=== PATIENT | female | born 1935 | race Hispanic/Latino ===

== ENCOUNTER 2017-06-05 15:01 | Inpatient (IN) | payer MEDICARE, OTHER ==
[2017-06-05] MEDS ORDERED: Albuterol Sulfate 1.25 MG/3 ML NEB ONE (15:33)
[2017-06-05 15:39] LABS: Oxyhemoglobin 93.2 % (94.0-97.0); Sodium 145 mmol/L (135-148)
[2017-06-05 15:42] LABS: Modified Allen's Test POSITIVE; Vent NO
--- NOTE | 2017-06-05 15:56 | RAD ---
PORTABLE CHEST 1 VIEW: DATE: 06/05/17. TIME: 2:50 p.m. HISTORY: Altered mental status, unresponsive. FINDINGS: Comparison is made with the exam of 11/03/16. The heart size is normal. The aorta is tortuous. There is evidence of old granulomatous disease. N o lobar consolidation, pneumothoraces, robert pulmonary edema, or large effusions are seen. POS: [facility]
--- NOTE | 2017-06-05 16:13 | RAD ---
PORTABLE CHEST ONE VIEW: Date: 06-05-17 Time: 3:23 p.m. History: Central line placement. FINDINGS: There has been interval placement of a left subclavian central line with the tip in the direction of the SVC since earlier exam of 2:50 p.m. on the same date. No pneumothorax is seen. POS: [facility]
[2017-06-05 16:20] LABS: Bilirubin Negative (Negative); Blood, Urine Small (Negative); Glucose, Urine (Dipstick) 250 mg/dL (Negative); Ketone, Urine 40 mg/dL (Negative); Nitrite Negative (Negative); Protein, Urine (Dipstick) > or equal to 300 mg/dL (Neg-Trace); Urobilinogen 0.2 mg/dL (0.2-1.0)
[2017-06-05 16:21] LABS: Bacteria/HPF Rare-Few HPF (None Seen); RBC/HPF 0-3 HPF (0-3); Squamous Epithelial 0-3 HPF (0-3)
[2017-06-05] MEDS ORDERED: Furosemide 40 MG/4 ML VIAL ONE (16:28)
[2017-06-05 16:29] LABS: Hyaline Casts/LPF 0-3 HYALINE CAST LPF (0-3 Hyaline)
[2017-06-05 16:30] LABS: Lactic Acid - Sepsis 2.2 mmol/L (0.5-2.2)
[2017-06-05 16:33] LABS: Amphetamine Not Detected (NotDetected); Methadone Not Detected (NotDetected); Methamphetamine Not Detected (NotDetected)
[2017-06-05 16:33] LABS: Acetaminophen Less than 6.0 mcg/mL (10.0-30.0); Salicylate Less than 8.0 mg/dL (15.0-30.0)
[2017-06-05 16:34] LABS: ALT (SGPT) Less than 7 U/L (8-55); AST (SGOT) 16 U/L (5-34); Alkaline Phosphatase 68 U/L (40-150); Anion Gap 19 mmol/L (10-20); BUN (Urea Nitrogen) 76 mg/dL (9.8-20.1); Bilirubin, Total 0.5 mg/dL (0.2-1.2); CK (CPK) 93 U/L (29-168); Calc. Creatinine Clearance 0 mL/min (70-130); Calcium 8.3 mg/dL (7.8-10.44); Carbon Dioxide 13 mmol/L (23-31); Chloride 114 mmol/L (98-107); Estimated GFR-MDRD 5; Globulin 3.3 g/dL (2.4-3.5); Lipase 27 U/L (8-78); Protein, Total 6.6 g/dL (6.0-8.3)
[2017-06-05 16:35] LABS: Hematocrit 40.1 % (36.0-47.0); Mean Platelet Volume 7.3 fL (7.4-10.4); Red Blood Cell (RBC) Count 4.06 mill/uL (4.20-5.40)
[2017-06-05 16:45] LABS: Troponin I 0.501 ng/mL (< 0.028)
[2017-06-05] MEDS ORDERED: Piperacillin/Tazobactam 4.5 GM in Sodium Chloride 0.9% 100 ML IVPB SCH (16:45)
[2017-06-05 16:50] LABS: Anisocytosis SLIGHT = 6-15 cells (100X) (0-5/hpf); Band 16 % (5-11); Neutrophil 69 % (42-75); Polychromasia SLIGHT = 2-3 cells (100X) (0-2/hpf); Reactive Lymphocytes 2 % (0-10); Schistocytes SLIGHT = 2-5 cells (100X) (0-1/hpf)
[2017-06-05] MEDS ORDERED: Vecuronium 10 MG VIAL ONE (17:01)
[2017-06-05 17:29] LABS: Oxyhemoglobin 96.7 % (94.0-97.0); Sodium 143 mmol/L (135-148)
--- NOTE | 2017-06-05 17:40 | RAD ---
CHEST 1 VIEW: Date: 06/05/17 Time: 1523 hours HISTORY: Unresponsive patient. AMS FINDINGS: Interval placement of endotracheal and nasogastric tube. Stable left-sided central venous catheter. S light worsening opacification of left lung base due to interstitial and alveolar opacification. Minim al interstitial opacification in the right lung base. No pneumothorax. IMPRESSION: 1. Bibasilar, left greater than right, interstitial and alveolar opacities. 2. Lines and tubes as above. POS: [facility]
[2017-06-05 17:49] LABS: Mechanical Tidal Volume 400 ml; Modified Allen's Test POSITIVE; Vent YES
[2017-06-05 17:50] LABS: Mode SIMV
--- NOTE | 2017-06-05 17:55 | CT ---
NONCONTRAST HEAD CT: Date: 06/05/17 HISTORY: Altered mental status. COMPARISON: None. TECHNIQUE: Noncontrast head CT is performed from skull base to skull vertex. FINDINGS: There is loss of amaya-white matter differentiation involving the left cerebrum, compatible with a MCA distribution infarction. Subtle linear hyperdensity along the left temporal and frontal cortex may r epresent small amounts of hemorrhage. There is mass effect and partial effacement of the left ventric ular system. There is also component of loss of cortical amaya-white matter differentiation in the med ial aspect of the left frontal lobe, as well as the left occipital lobe suggesting LUCILLE and [employer] distri bution insult. There is hnfo-tt-sjlea subfalcine herniation of approximately 3 mm. Basilar cisterns a nd ambient cisterns continue to be patent. There are patchy white matter hypodensities which may represent chronic small vessel ischemic change. Calvarium is intact. Adequate aeration of the sinuses and mastoid air cells. Cavernous carotid athero sclerosis is noted. IMPRESSION: 1. Multifocal and multiterritory left cerebral infarction is suspected. Linear hyperdensities may re present small components of hemorrhage. 2. Dawf-gl-idunb subfalcine herniation. 3. Mass effect and partial effacement of left ventricular system. Results of study discussed with Dr. Proctor on 06/05/17 at 1748 hours. CODE CR. POS: [facility]
[2017-06-05] MEDS ORDERED: Aspirin 300 MG Suppository ONE (18:34)
[2017-06-05 18:36] LABS: Prothrombin Time 16.6 SEC (12.0-14.7)
[2017-06-05 18:37] LABS: PTT 35.9 SEC (22.9-36.1)
[2017-06-05] MEDS ORDERED: manNITOL 20% 250 ML IVPB SCH (19:30)
[2017-06-05] MEDS ORDERED: Dextrose 50% Abboject 50 ML SYRINGE SLOW IVP PRN (21:16)
[2017-06-05] MEDS ORDERED: Dextrose 5% in Water 1,000 ML IV PRN (21:16)
[2017-06-05] MEDS ORDERED: Ondansetron HCl/PF 4 MG/2 ML Vial IVP PRN ×2 (21:17→21:27)
[2017-06-05] MEDS ORDERED: Sodium Chloride 0.9% 1,000 ML IV SCH (21:17)
[2017-06-05] MEDS ORDERED: Ondansetron ODT 4 MG TAB SL PRN (21:17)
[2017-06-05] MEDS ORDERED: Eucerin (Mineral Oil/Petrolatum,White) 30 gm Jar TOP PRN (21:22)
[2017-06-05] MEDS ORDERED: RENALLY ADJUST ANTIBIOTICS IVPB PRN (21:26)
[2017-06-05] MEDS ORDERED: Bisacodyl 10 MG SUPP PR PRN (21:26)
[2017-06-05] MEDS ORDERED: Ondansetron ODT 4 MG TAB PO PRN (21:27)
--- NOTE | 2017-06-05 22:02 | HP ---
DATE OF ADMISSION: 06/05/2017 PRIMARY CARE PHYSICIAN: Lu Thomas M.D. PRIMARY SENIOR ACCOUNT DIRECTOR: Dr. Rascon. CHIEF COMPLAINT: Unresponsiveness. HISTORY OF PRESENT ILLNESS: The patient is an 81-year-old female with hypertension, diabetes mellitus type 2, CKD stage 5, was brought into the emergency room with unresponsiveness. History obtained from the son at the bedside. Patient was found unresponsive at home. She was last seen normal 2 days ago. She was lying in her bed and was not answering the door for which EMS was called. Details unavailable at this time. She received DuoNebs and was placed on noninvasive positive pressure ventilation. Her initial vital signs in the emergency room showed temperature of 98.4, respiration of 28, pulse rate of 102 , blood pressure of 172/65. She was intubated and placed on mechanical ventilation. Initial CT scan showed left middle cerebral artery distribution cerebrovascular accident with small component of hemorrhage along with left to right subfalcine herniation and mass effect on the left ventricular system. Her initial labs showed WBC of 21,000 with 16% bandemia. ABG showed pH of 7.35 with pCO2 of 21.9, bicarbonate of 12 with pO2 of 77.5. Repeat ABG showed pH of 7.24 with pCO2 of 32.3 and bicarbonate of 14. BNP was 2761. Prolactin level was 54. Urinalysis showed greater than 50 wbc's with the rare bacteria. Influenza testing was negative. Her chest x-ray was negative for infiltrate. A central line was placed in the emergency room. PAST MEDICAL HISTORY: 1. Hypertension 2. Hyperlipidemia. 3. Chronic kidney disease stage 5. 4. Secondary hyperparathyroidism. 5. Chronic anemia. 6. Glaucoma. PAST SURGICAL HISTORY: 1. Right kidney stent. 2. History of breast biopsy. 3. Right lower extremity stent, details unavailable. ALLERGIES: Patient is allergic to NORCO, DEMEROL, and MORPHINE. SOCIAL HISTORY: Patient is a former smoker. No alcohol or drug use. FAMILY HISTORY: Negative for diabetes, hypertension, or heart disease. REVIEW OF SYSTEMS: Cannot be reliably obtained from the patient due to current cognitive status. PHYSICAL EXAMINATION: VITAL SIGNS: As discussed above. GENERAL: An 81-year-old female, intubated on mechanical ventilation. HEENT: Head atraumatic, normocephalic, sclerae anicteric. Pupils were 3 to 4 mm bilaterally with no/minimal response to light. NECK: Supple, no JVD, no neck stiffness, no carotid bruit. LUNGS: Showed diminished air entry bilaterally with coarse breath sounds. No wheezing or rhonchi. HEART: S1, S2 present. Regular rate and rhythm, 2/6 systolic murmur over the mitral area. ABDOMEN: Soft, nontender, bowel sounds present. EXTREMITIES: No edema or calf tenderness. NEUROLOGIC/PSYCHIATRIC: Could not be done due to current cognitive status. SKIN: Warm and dry. LYMPH NODES: No palpable lymph nodes in the neck. PERIPHERAL VASCULAR: Radial pulses palpable bilaterally. MUSCULOSKELETAL: No joint swelling or tenderness. LABORATORY FINDINGS: As discussed above. EKG by my review showed sinus rhythm with nonspecific ST-T wave changes mainly in the lateral leads. Chest x-ray and CT scan of the brain by my review as discussed above. IMPRESSION: 1. 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 No antiplatelet due to hemorrhagic coversion. 2. Acute hypoxic respiratory failure. 3. Acute kidney injury on chronic kidney disease stage 5. 4. Metabolic acidosis, probably secondary to renal insufficiency. 5. Suspected seizure secondary to acute cerebrovascular accident. Patient has elevated prolactin level. 6. Sepsis with acute organ dysfunction secondary to urinary tract infection. 7. Diabetes mellitus type 2. 8. Hypertension. 9. Chronic anemia. 10. Glaucoma. 11. Dyslipidemia. PLAN: The patient will be monitored in the Intensive Care Unit. Critical Care , Neurosurgery has been notified. We will consult Nephrology, Dr. Rascon. We will start her on bicarbonate drip. Continue mannitol. Insulin sliding scale. Supportive care. Stroke team. Consult palliative care. Repeat labs in the a.m. Low dose Keppra for seizure precautions. Consult Neurology. Empiric antibiotics. Plan of care was discussed with the son. He stated understanding. CODE STATUS: FULL CODE. Surrogate decision maker is son at the bedside. GREGORIO
[2017-06-05] MEDS: Sodium Bicarbonate 150 MEQ in Dextrose 5% in Water 1,000 ML IV SCH ×2 (22:33)
[2017-06-05] MEDS: hydrALAZINE 20 MG/ML VIAL SLOW IVP PRN (23:05)
[2017-06-06] MEDS: Insulin Regular 300 UNITS/3 ML VIAL SC PRN ×3 (00:01→09:31)
[2017-06-06] MEDS ORDERED: Labetalol HCl 100 MG/20 ML VIAL SLOW IVP PRN (01:12)
[2017-06-06] MEDS ORDERED: Piperacillin/Tazobactam 2.25 GM in Sodium Chloride 0.9% 100 ML IVPB SCH (02:00)
[2017-06-06] MEDS: Labetalol HCl 100 MG/20 ML VIAL SLOW IVP PRN ×7 (02:36→20:13)
[2017-06-06] MEDS: Piperacillin/Tazobactam 2.25 GM in Sodium Chloride 0.9% 100 ML IVPB SCH ×2 (05:18→18:51)
--- NOTE | 2017-06-06 05:45 | CON ---
DATE OF CONSULTATION: 06/05/2017 HISTORY OF PRESENT ILLNESS: Ms. Ellsworth is an 81-year-old woman who presented to the emergency departm ent at [facility] via EMS. Last time, the patient was seen normal, was on Monday or y according to family members. Patient was found by home-health provider to be unresponsive to the d oor. EMS arrived at request of the home health service and then patient was found in her bed, not an swering to commands. She had what seemed to be poor breath sounds in all lobes of the lungs and was blinking on command, but otherwise was not moving according to EMS at bedside today. In the emergenc y department, the patient is intubated. She had received paralytics for rapid sequence intubation in the ER, but this was roughly 2-1/2 hours ago and thus all of her paralytics worn off and she has not received any sedation after the fact. She still has been minimally responsive if any upon my observ ation. CT scan was performed in the emergency department shows large multifocal left-sided infarcts most significant, which is in left middle cerebral artery distribution, ischemic area as well as some smaller areas in the anterior and posterior cerebral artery distributions. There is also a question able hemorrhage involving the temporal and parietal lobes in the healthier tissue that distal perfuse d, but I am not completely convinced that this is in fact hemorrhage. The patient did not report to be on any blood thinning medications and coagulation studies are normal from my standpoint. Patient' s prognosis is extraordinarily poor. PHYSICAL EXAMINATION: Patient's pupils are equally round and reactive to light. Her extraocular mov ements are unable to be assessed, as she is not moving them at all. She does not blink. At this rika e, she has no corneal reflex. She does not have a gag reflex. She is on the ventilator and is not o verbreathing yet. She no pain response in any significant way. ASSESSMENT: Left multifocal cerebral infarcts. PLAN: At this time, due to the patient's significant medical history including diabetes, kidney dise ase as well as pneumonia given her chest scans. I cannot recommend surgery given the high risk and l ow benefit. I discussed with the family at length that my best recommendation will be medical interv ention to this, which would be mannitol 50 grams x1 through her IV and will assess over the course of the next 12-24 hours if there is any clinical improvement. I had a robert discussion with the family members about the significantly poor prognosis, given the amount of infarct in her comorbidities, an d they are understanding of this and again we will continue to monitor while in the ICU. Lamberto Mccoy PA-C dictating for Dr. Gomez.
[2017-06-06 06:16] LABS: Band 29 % (5-11); Hematocrit 34.8 % (36.0-47.0); Mean Platelet Volume 7.3 fL (7.4-10.4); Neutrophil 66 % (42-75); Red Blood Cell (RBC) Count 3.53 mill/uL (4.20-5.40); White Blood Cell (WBC) Count 13.2 thou/uL (4.8-10.8)
[2017-06-06 06:20] LABS: ALT (SGPT) Less than 7 U/L (8-55); AST (SGOT) 11 U/L (5-34); Alkaline Phosphatase 50 U/L (40-150); Anion Gap 18 mmol/L (10-20); BUN (Urea Nitrogen) 83 mg/dL (9.8-20.1); Bilirubin, Total 0.5 mg/dL (0.2-1.2); Calc. Creatinine Clearance 5 mL/min (70-130); Calcium 7.5 mg/dL (7.8-10.44); Carbon Dioxide 18 mmol/L (23-31); Chloride 105 mmol/L (98-107); Cholesterol 85 mg/dl (< 200 Desired); Estimated GFR-MDRD 5; Globulin 2.9 g/dL (2.4-3.5); LDL Cholesterol, Calculated 35 mg/dL; Protein, Total 5.6 g/dL (6.0-8.3)
[2017-06-06 07:11] LABS: Oxyhemoglobin 96.6 % (94.0-97.0); Sodium 136 mmol/L (135-148)
[2017-06-06 07:44] LABS: Mechanical Tidal Volume 500 ml; Mode SIMV.PSV; Modified Allen's Test POSITIVE; Pressure Support 10 cmH2O; Vent YES
--- NOTE | 2017-06-06 08:01 | RAD ---
FRONTAL SEMIUPRIGHT CHEST RADIOGRAPH: Date: 06/06/17 COMPARISON: 06/05/17. HISTORY: CCU ventilated patient. FINDINGS: Endotracheal tube, nasogastric tube, and left-sided vascular catheter present. Recommend advancing th e nasogastric tube as the side port is proximal to the gastroesophageal junction. There is perihilar and bibasilar interstitial prominence with air space disease noted in both lung ba ses, left greater than right. Aeration has worsened in both lung bases, left greater than right. Pulmonary vascular congestion is noted, new. IMPRESSION: Worsening opacity in bilateral perihilar regions and both lung bases, left greater than right. Findin gs may be on the basis of pulmonary edema, infectious pneumonitis, and/or aspiration. Follow-up to re solution advised. POS: [facility]
[2017-06-06] MEDS ORDERED: FLU VACC TS2017-18 (>65YR) 0.5 ML SYRINGE IM ONE (09:00)
[2017-06-06] MEDS ORDERED: Vancomycin HCl 1 GM in Premix Bag 1 BAG IVPB SCH ×2 (09:00→09:45)
[2017-06-06] MEDS: Famotidine/PF 20 mg/2ml Vial SLOW IVP SCH (09:34)
[2017-06-06] MEDS ORDERED: Vancomycin HCl 1.25 GM in Sodium Chloride 0.9% 250 ML 250 ML IVPB SCH (09:45)
[2017-06-06] MEDS ORDERED: Vancomycin HCl 750 MG in Sodium Chloride 0.9% 250 ML 250 ML IVPB SCH (09:45)
[2017-06-06] MEDS ORDERED: Vancomycin HCl 500 MG in Sodium Chloride 0.9% 100 ML IVPB SCH (09:45)
[2017-06-06] MEDS ORDERED: HOLD VANCOMYCIN FOR LEVEL >20 FS SCH (09:45)
--- NOTE | 2017-06-06 10:25 | CON ---
DATE OF CONSULTATON: 06/06/2017 HISTORY OF PRESENT ILLNESS: Ms. Ellsworth is an 81-year-old white female who was admitted for [facility]. She was noted to be in acute respiratory failure. She also was intubated and placed on vent ilator support. We are now being consulted for her chronic renal failure. This patient was recently seen at the [facility]al [facility] about a month ago. At that time, I have recommended dialysis with her. Ho wever, she continues to decline the dialysis. In addition, an initial CT scan showed a left middle c erebral artery cerebrovascular accident with a small component of hemorrhage. REVIEW OF SYSTEMS: Not obtainable since the patient is intubated and sedated. PAST MEDICAL HISTORY: Includes the followin. Chronic renal failure secondary to presumed hypertensive/diabetic nephropathy. 2. Type 2 diabetes mellitus. 3. Peripheral vascular disease. 4. Hyperlipidemia. 5. Gout. 6. History of renovascular disease. PAST SURGICAL HISTORY: Recently status post intubation, status post right renal artery stent placeme nt, status post left leg arteriogram, status post angioplasty of the right peripheral vessel, status post left breast biopsy. SOCIAL HISTORY: The patient lives alone and lives in [place]. Retired nurse. Smoked for 40 year s, half a pack a day. Alcohol none. No IV drug abuse. No blood transfusion. Education, nursing in school. Patient is . One child - . Sedentary lifestyle. ALLERGIES: VICODIN, DEMEROL. TRAUMA: Status post ankle sprain. IMMUNIZATIONS: Up to date. HOSPITALIZATIONS: See past medical history. FAMILY HISTORY: No family history of ESRD. PHYSICAL EXAMINATION: VITAL SIGNS: Blood pressure is 150/46, heart rate 73, respiratory rate 12, O2 sat 100%. GENERAL: The patient is intubated on ventilator support, minimally arousable. SKIN: Adequate turgor. HEENT: Pinkish conjunctivae, anicteric sclerae. NECK: No neck mass, no carotid bruits, no JVD. CHEST: No deformities. LUNGS: Decreased breath sounds. HEART: Normal sinus rhythm. No murmur, no gallops, no rubs. ABDOMEN: Globular, soft, nontender, no masses. EXTREMITIES: No edema. NEUROLOGIC: Sedated and intubated. MEDICATIONS: Of 06/06/2017, DuoNeb q.4 hours p.r.n., Lipitor 10 mg tab at bedtime, hydralazine 10 mg IV q.4 hours p.r.n., Humulin R sliding scale, Levetiracetam 250 mg q.12 hours, Zofran 4 mg q.6 hours p.r.n., Zosyn 2.25 grams IV q.12 hours, sodium bicarbonate drip, status post vancomycin. LABORATORY DATA: Of 06/06/2017, white count 13.2, hemoglobin 11.1, hematocrit 34.8. Sodium 137, pot assium 4, chloride 105, carbon dioxide 18, BUN 83, creatinine 7.57, glucose 159, calcium 7.5, AST 11, ALT 7. IMAGING: CT scan of the head on 06/05/2017 showed multifocal and multi territory left cerebral infar ction and suspect that there is a left to right subfalcine herniation. There is some mass effect and partial effacement of the left ventricular system. ASSESSMENT AND PLAN: 1. Status post cerebrovascular accident. Continue supportive care. Neurosurgery consult. 2. Chronic renal failure - this patient has worsening renal dysfunction. My bias is to initiate hem odialysis with this patient without any heparin use. We will consult surgery for temporary femoral l ine placement. Please note, the etiology of the chronic renal failure is also from renovascular dise ase/hypertensive nephropathy, although diabetic nephropathy may also be playing a factor. 3. Sepsis? the patient has been given some empiric IV antibiotics in the past. Overall, prognosis remains guarded.
--- NOTE | 2017-06-06 10:46 | CON ---
DATE OF CONSULTATION: 06/06/2017 Sada Ellsworth is an 81-year-old female who is intubated on the vent. I am not able to get any informati on, but apparently ER note states that she came in unresponsive as per family members. CT of the hea d shows a large left MCA distribution infarct. X-ray shows a left-sided infiltrate. She has been here recently in the hospital. It appears she was apparently placed on CPAP in the ER. Somewhere down the line she was intubated. Extensive history is outlined. PAST MEDICAL HISTORY: Pertinent for diabetes, high cholesterol, hypertension and renal failure. PAST SURGICAL HISTORY: Multiple including she had renal stents, peripheral vascular stent. Breast b iopsy. MEDICATIONS FROM HOME: Melatonin, glimepiride 2 mg, ferrous sulfate, clonidine 0.3 twice a day, Core g 6.25 b.i.d., aspirin, amlodipine 5, allopurinol 100. ALLERGIES: Multiple, MORPHINE, DEMEROL, HYDROCODONE, TYLENOL. REVIEW OF SYSTEMS: Unobtainable, she is on the vent. PHYSICAL EXAMINATION: GENERAL: She opens her eyes, is able to move the right lower extremity. VITAL SIGNS: Pulse 75, O2 sat 100%, blood pressure 150/57. CHEST: Reveals bilateral rhonchi. CARDIAC: Normal S1, normal S2.. ABDOMEN: Soft. No masses. LABORATORY DATA: White count 13,000, H&H 11 and 34. Platelet count 289, pO2 102, pCO2 30, pH 7.50 o n 40%, rate of 14, creatinine is 7.5, BUN 83, albumin is 2.7. X-ray showed left-sided infiltrate. CT of the head is as noted shows a large area of infarct involvi ng the left cerebral area. IMPRESSION: 1. Left cerebrovascular accident, left-sided paralysis. 2. Renal failure. 3. Apparently smoker. 4. Left-sided pneumonia, probably aspiration. 5. Diabetes. PLAN: Minimize sedation. Await input from Neurology. I agree with empiric antibiotics, neb treatme nts, supportive care. I will follow. Forty-five minutes critical care time.
--- NOTE | 2017-06-06 10:52 | CT ---
NONCONTRAST CT BRAIN: Date: 06-06-17 Comparison: 06-05-17 Technique: Noncontrast enhanced CT images of the brain obtained. FINDINGS: There continues to be approximately 6 mm of left to right shift, slightly more pronounced than on the previous where it measured 3 mm midline shift. There continues to be extensive edema in the left fro ntal lobe and left parietal lobes compatible with acute stroke. No evidence of interval enlargement o f the stroke is seen. No definite evidence of hemorrhage is seen. Areas of heterogeneous density is s een in the left hemisphere. IMPRESSION: Heterogeneous pattern of density involving much of the left frontal hemisphere compatible with areas of subacute infarction as well as non-infarcted brain. Extensive hemispheric edema is also present. T here is an increase in the midline shift. POS: [facility]
[2017-06-06] MEDS: hydrALAZINE 20 MG/ML VIAL SLOW IVP PRN ×2 (11:41→16:03)
[2017-06-06 12:35] LABS: Vancomycin, Random 22.7 ug/mL (See Comment)
[2017-06-06] MEDS ORDERED: cloNIDine 0.1mg/24 Hour PATCH TD SCH (13:00)
[2017-06-06] MEDS: Sodium Bicarbonate 150 MEQ in Dextrose 5% in Water 1,000 ML IV SCH ×2 (15:17)
--- NOTE | 2017-06-06 20:11 | CON ---
DATE OF CONSULTATION: 06/06/2017 NEUROLOGY CONSULTATION CONSULTING PHYSICIAN: Hospitalist service. IMPRESSION: 1. Large left middle cerebral artery stroke with mild midline shift in the far frontal region and so me secondary petechial hemorrhage. 2. Normal ejection fraction. 3. End-stage renal disease. 4. Hypertension. 5. Diabetes. 6. Tobacco use. PLAN: 1. Aspirin 325 mg per gastrostomy tube. 2. Carotid ultrasound. 3. Begin dialysis, which may also help with reducing cerebral edema. 4. Attempt extubation when safe. 5. Swallow evaluation once extubated. HISTORY OF PRESENT ILLNESS: Ms. Ellsworth is an 81-year-old female who was living independently prior to being found unresponsive in her home. Family members had called several times before omari alena went over and checked on her. They found her on Monday with new onset of paralysis on the right a nd inability to speak. She was subsequently intubated and put in the intensive care unit. She had a followup CT done today, which showed mild degree of frontal midline shift. She has plenty of space around the brainstem. She has had echocardiogram done today with ejection fraction of around 70%. S he has not had any prior stroke symptoms. PAST MEDICAL HISTORY: As listed above. ALLERGIES: MORPHINE, HYDROCODONE, DEMEROL. SOCIAL HISTORY: Positive tobacco use. FAMILY HISTORY: Noncontributory. REVIEW OF SYSTEMS: Not obtainable. PHYSICAL EXAMINATION: VITAL SIGNS: Blood pressure 133/37, pulse 78, respirations 27, saturations 100%. HEENT: Pupils are equal and conjunctivae are clear. She has roving eye movements. She has spontane ous eye opening. She has been intubated. NEUROLOGIC: She appears to localize to voice and focuses on what is in front of her and she had dimi nished tone on the right side as compared to the left. She had some spontaneous movement on the left . No abnormal movements were seen. Plantar responses were upgoing on the right and downgoing on the left. CT images were reviewed. LABORATORY STUDIES: Reviewed. SUMMARY: An 81-year-old woman with a fairly massive stroke, which she has shown some mild cerebral e jay, but I think that she will survive this, discussed the potential outcomes with her family in reg tabitha to her aphasia and right hemiparesis. They want to continue with full efforts to try to stabiliz e her and moved towards rehabilitation.
[2017-06-06] MEDS: Atorvastatin Calcium 10 MG TAB PER TUBE SCH (20:20)
--- NOTE | 2017-06-06 23:30 | PDOC.PN ---
- Subjective Encounter Start Date: 06/06/17 Encounter Start Time: 12:30 -: non-verbal Patient seen and examined. Intubated on Vent. - Objective Resuscitation Status: Resuscitation Status DNR:Do Not Resuscitate MAR Reviewed: Yes Vital Signs & Weight: Vital Signs (12 hours) Temp Pulse Resp BP Pulse Ox 06/06/17 22:06 74 114/39 L 06/06/17 22:00 33 H 06/06/17 20:13 88 175/44 H 06/06/17 20:00 99.2 F 23 H 06/06/17 19:33 99.2 F 77 31 H 100 06/06/17 18:51 77 166/43 H 06/06/17 18:40 90 167/48 H 06/06/17 18:00 23 H 06/06/17 16:03 75 165/41 H 06/06/17 16:00 98.2 F 27 H 06/06/17 14:39 75 165/41 H 06/06/17 14:02 71 143/39 H 06/06/17 14:00 21 H 06/06/17 13:59 74 31 H 99 06/06/17 12:00 98.9 F 30 H 06/06/17 11:41 74 165/48 H Weight Admit Weight 108 lb 3.2 oz Weight 110 lb 6.4 oz Most Recent Monitor Data Heart Rate from ECG 71 NIBP 114/39 NIBP BP-Mean 60 Respiration from ECG 34 SpO2 100 I&O: 06/05/17 06/06/17 06/07/17 06:59 06:59 06:59 Intake Total 828 949 Output Total 312 540 Balance 516 409 Result Diagrams: 06/07/17 04:23 06/07/17 04:23 Additional Labs: Accuchecks 06/06/17 06/06/17 06/06/17 17:15 12:08 09:15 POC Glucose 135 H 153 H 183 H 06/06/17 06/05/17 04:26 23:49 POC Glucose 160 H 174 H EKG Reviewed by me: Yes (Tele SR) Phys Exam - Physical Examination Pt on mec Vent. Respiratory: wheezing present B/L rales, intubated. Symmetrical. Scat rhonchi Cardiovascular: RRR, no rub no heaves/pulsations Gastrointestinal: soft, positive bowel sounds Neuro/Psych - Not following commands. Cannot assess due to current mentatio Dx/Plan - Plan cont current plan of care, plan discussed w/ family, DVT proph w/SCDs IMPRESSION: 1. 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 No antiplatelet due to hemorrhagic coversion. 2. Acute hypoxic respiratory failure - on Mech Vent 3. Acute kidney injury on chronic kidney disease stage 5. 4. Metabolic acidosis, probably secondary to renal insufficiency. - on bicarb drip 5. Suspected seizure secondary to acute cerebrovascular accident. Patient has elevated prolactin level. 6. Sepsis with acute organ dysfunction secondary to urinary tract infection/ Aspiration pneumonia. 7. Diabetes mellitus type 2. on sliding scale 8. Hypertension. 9. Chronic anemia. 10. Glaucoma. 11. Dyslipidemia. PLAN: * NSG following * Not on antiplatelet due to hemorrhagic conversion * Cont to monitor * Critical care following * Await Neuro input * DNR * Add Vancomycin * Cont Zosyn * Not on Heparin/Lovenox due to hemorrhagic conversion Review of Systems - Review of Systems Other: Cannot obtain due to current mentation. - Medications/Allergies Allergies/Adverse Reactions: Allergies Allergy/AdvReac Type Severity Reaction Status Date / Time acetaminophen [From Vicodin] Allergy Verified 11/23/16 15:45 hydrocodone [From Vicodin] Allergy Verified 11/23/16 15:45 meperidine [From Demerol] Allergy Verified 11/23/16 15:45 morphine Allergy Verified 11/23/16 15:45 Medications: Current Medications Albuterol/Ipratropium (Duoneb) 3 ml NEB [id number] PRN PRN Reason: SOB &/or Wheezing Albuterol/Ipratropium (Duoneb) 3 ml NEB [id number] [facility] Last Admin: 06/06/17 18:40 Dose: 3 ml Aspirin (Aspirin) 325 mg PO DAILY [facility] Atorvastatin Calcium (Lipitor) 10 mg PER TUBE HS [facility] Last Admin: 06/06/17 20:20 Dose: 10 mg Bisacodyl (Dulcolax) 10 mg [place] DAILYPRN PRN PRN Reason: Constipation Clonidine (Gqeivowq-Uvu-0 Patch) 0.1 mg TD Q7DAYS@1300 [facility] Last Admin: 06/06/17 13:13 Dose: 0.1 mg Dextrose/Water (Dextrose 50%) 25 gm SLOW IVP PRN PRN PRN Reason: Hypoglycemia Famotidine (Pepcid) 20 mg SLOW IVP Q24HR [facility] Last Admin: 06/06/17 09:34 Dose: 20 mg Glucagon (Glucagon) 1 mg IM PRN PRN PRN Reason: Hypoglycemia Hydralazine HCl (Apresoline) 10 mg SLOW IVP Q4H PRN PRN Reason: BP > 160 Last Admin: 06/06/17 16:03 Dose: 10 mg Dextrose/Water (D5w) 1,000 mls @ 0 mls/hr IV .Q0M PRN; As Directed PRN Reason: Hypoglycemia Sodium Bicarbonate 150 meq/ (Dextrose/Water) 1,150 mls @ 75 mls/hr IV .[id number] [facility] Last Admin: 06/06/17 15:17 Dose: 1,150 mls Levetiracetam 250 mg/ Sodium (Chloride) 102.5 mls @ 205 mls/hr IVPB 1000,2200 [facility] Last Admin: 06/06/17 21:26 Dose: 102.5 mls Piperacillin Sod/Tazobactam (Sod 2.25 gm/ Sodium Chloride) 100 mls @ 200 mls/ hr IVPB 0600,1800 [facility] Last Admin: 06/06/17 18:51 Dose: 100 mls Vancomycin HCl 1.25 gm/ Sodium (Chloride) 250 mls @ 166.667 mls/hr IVPB [facility] Vancomycin HCl 1 gm/ Device 200 mls @ 200 [facility]ls/[facility] Vancomycin HCl 750 mg/ Sodium (Chloride) 250 mls @ 250 mls/hr IVPB [facility] Vancomycin HCl 500 mg/ Sodium (Chloride) 100 mls @ 100 mls/hr IVPB [facility] Insulin Human Regular (Humulin R) 0 units SC .MILD SLIDING SCALE PRN PRN Reason: Mild Correctional Scale Last Admin: 06/06/17 09:31 Dose: 2 unit Labetalol HCl (Normodyne) 20 mg SLOW IVP Q1H PRN PRN Reason: BP > 160 Last Admin: 06/06/17 20:13 Dose: 20 mg Labetalol HCl (Normodyne) 10 mg SLOW IVP Q6H PRN PRN Reason: SBP GREATER THAN 160 Last Admin: 06/06/17 01:22 Dose: 10 mg Mineral Oil/White Petrolatum (Eucerin Cream) 0 gm TOP BIDPRN PRN PRN Reason: Dry Skin Miscellaneous Medication (Pharmacy To Dose) 1 each IVPB PRN PRN PRN Reason: Pharmacy to dose Miscellaneous Medication (Pharmacy To Dose) 1 each IVPB PRN PRN PRN Reason: Pharmacy to dose Hold Vancomycin For (Level >20) 0 each FS .AT DIALYSIS [facility] Ondansetron HCl (Zofran Odt) 4 mg PO Q6H PRN PRN Reason: Nausea/Vomiting Ondansetron HCl (Zofran) 4 mg IVP Q6H PRN PRN Reason: Nausea/Vomiting Sodium Chloride (Flush - Normal Saline) 10 ml IVF Q12HR [facility] Last Admin: 06/06/17 20:20 Dose: 10 ml Sodium Chloride (Flush - Normal Saline) 10 ml IVF PRN PRN PRN Reason: Saline Flush
[2017-06-07] MEDS: Labetalol HCl 100 MG/20 ML VIAL SLOW IVP PRN ×6 (01:17→18:04)
[2017-06-07] MEDS: hydrALAZINE 20 MG/ML VIAL SLOW IVP PRN ×2 (02:05→12:18)
[2017-06-07 05:04] LABS: ALT (SGPT) 8 U/L (8-55); AST (SGOT) 17 U/L (5-34); Alkaline Phosphatase 51 U/L (40-150); Anion Gap 15 mmol/L (10-20); BUN (Urea Nitrogen) 82 mg/dL (9.8-20.1); Bilirubin, Total 0.5 mg/dL (0.2-1.2); Calc. Creatinine Clearance 5 mL/min (70-130); Calcium 6.9 mg/dL (7.8-10.44); Carbon Dioxide 28 mmol/L (23-31); Chloride 102 mmol/L (98-107); Estimated GFR-MDRD 5; Globulin 2.7 g/dL (2.4-3.5); Protein, Total 5.1 g/dL (6.0-8.3)
[2017-06-07 05:29] LABS: Band 5 % (5-11); Hematocrit 28.2 % (36.0-47.0); Mean Platelet Volume 7.4 fL (7.4-10.4); Neutrophil 86 % (42-75); Red Blood Cell (RBC) Count 2.85 mill/uL (4.20-5.40); White Blood Cell (WBC) Count 10.8 thou/uL (4.8-10.8)
[2017-06-07] MEDS: Piperacillin/Tazobactam 2.25 GM in Sodium Chloride 0.9% 100 ML IVPB SCH ×2 (05:33→19:49)
[2017-06-07] MEDS: Sodium Bicarbonate 150 MEQ in Dextrose 5% in Water 1,000 ML IV SCH ×2 (05:34)
--- NOTE | 2017-06-07 08:10 | RAD ---
PORTABLE CHEST: COMPARISON: 06/06/17 exam. HISTORY: Respiratory distress. FINDINGS: Endotracheal tube is in satisfactory position. NG tube is seen at the sidehole in the distal esophag us. This should be advanced several centimeters for better placement. Bibasilar lung changes are st able. Left subclavian line is unchanged in position. IMPRESSION: Stable exam. Nasogastric tube should be advanced for better placement. POS: [facility]
[2017-06-07 08:12] LABS: Oxyhemoglobin 96.1 % (94.0-97.0); Sodium 142 mmol/L (135-148)
[2017-06-07 08:13] LABS: Mechanical Tidal Volume 500 ml; Mode SIMV.PSV; Modified Allen's Test POSITIVE; Pressure Support 10 cmH2O; Vent YES
--- NOTE | 2017-06-07 09:12 | PRG ---
DATE OF SERVICE: 06/07/2017 SUBJECTIVE: This patient remains intubated on mechanical ventilation. She is not currently receivin g sedation. OBJECTIVE: VITAL SIGNS: Pulse is 70, blood pressure 168/53, O2 sat 100%, respiratory rate 20. NEUROLOGIC: She will open her eyes to voice. She will move her left arm spontaneously. She can mov e her legs spontaneously. She is flaccid on her right arm and appears to be flaccid on the right birdie e of her face. HEENT: Otherwise unremarkable except for tubes in position. NECK: No JVD. LUNGS: Clear to auscultation. CARDIAC: S1 and S2 regular. ABDOMEN: Soft, nontender. EXTREMITIES: No edema. LABORATORY DATA: White blood cell count 10, hematocrit 28.2, platelet count 212, pH 7.49, pCO2 34, p O2 100 on SIMV rate 10, tidal volume 500, PEEP 5, pressure support 10, FiO2 30%. Sodium 142, potassi um 3.3, chloride 102, CO2 28, BUN 82, creatinine 7.6, glucose 134. ASSESSMENT: 1. Large left-sided cerebrovascular accident with partial right-sided hemiparesis. 2. Acute respiratory failure requiring mechanical ventilation. 3. Chronic renal failure. 4. Aspiration pneumonia. 5. Diabetes mellitus. PLAN: 1. Begin tube feeds. 2. Generalized supportive care. 3. The family is likely to withdrawal of ventilator in a couple of days. I told them in direct term s that the patient could potentially be poorly extubated and will all depend on how her stroke has af fected her swallowing and cough reflex. The patient has made clear that she does not want dialysis. She is currently DNR.
--- NOTE | 2017-06-07 09:55 | PRG ---
DATE OF SERVICE: 06/07/2017 SUBJECTIVE: Ms. Ellsworth is an 81-year-old female with chronic renal failure and admitted due to an acute CVA. She had a large left middle cerebral artery with a mild midline shift. She also wa s intubated due to respiratory failure. We are following her up for chronic renal failure. No acute events noted in the last 24 hours. She remains stable, but unimproved. Neurology has evalu ated this patient. PHYSICAL EXAMINATION: VITAL SIGNS: Blood pressure is 168/53, heart rate 76, respiratory rate 20, and pulse ox 100%. GENERAL: Unresponsive, intubated on ventilator support. SKIN: Adequate turgor. HEENT: Slightly pale conjunctivae, anicteric sclerae. NECK: No neck mass, no carotid bruits, no JVD. CHEST: No deformities. LUNGS: Decreased breath sounds. HEART: Normal sinus rhythm. No murmur, no gallops. ABDOMEN: Globular, soft, nontender. EXTREMITIES: No edema. NEUROLOGIC: Unresponsive. MEDICATIONS: 06/07/2017 was reviewed. LABORATORY DATA: On 06/07/2017 - White count 10.8, hemoglobin 9.3. Sodium 142, potassium 3.3, chlor joelle 102, carbon dioxide 28, BUN 82, creatinine 7.67, glucose 134, calcium 6.9, and albumin 2.4. ASSESSMENT AND PLAN: Chronic renal failure - ideally this patient could be dialyzed. However, due t o the recent large cerebrovascular accident with development concomitant acute respiratory failure, m y bias is not to offer dialysis with this patient. This patient has been seen the renal clinic and w e will do her GFR is much depressed; she has been very hesitant to initiate dialysis. With this hist ory in mind, we should probably not offer dialysis unless this patient dramatically improves. Overall, I agree with supportive management. I had a long discussion with the niece and nephew jaiden keli palliative care and hospice care. They are considering this. Overall, I agree with current man agement.
[2017-06-07] MEDS: Aspirin 325 MG TAB PO SCH (10:00)
[2017-06-07] MEDS: Famotidine/PF 20 mg/2ml Vial SLOW IVP SCH (10:01)
--- NOTE | 2017-06-07 13:13 | ULT ---
BILATERAL CAROTID DUPLEX ULTRASOUND INCLUDING COLOR AND SPECTRAL DOPPLER IMAGING: HISTORY: An 81-year-old female with a stroke. FINDINGS: There is very extensive female with stroke. Very extensive bilateral plaque including the proximal right ICA and very severe plaque involving the distal CCA. PSV right ICA 382 cm/s with EDV of 40 cm/s and ICA/CCA ratio of 3.6. Left CCA peak systolic velocity measures 459 cm/s which is markedly high. Right internal carotid art elizabeth PSV 99 cm/s with EDV of 20 cm/s and ICA/CCA ratio of 0.2. IMPRESSION: 1. Evidence for severe, greater than 70%, stenosis of the proximal right internal carotid artery. E vidence for severe stenosis of the distal left common carotid artery. 2. Severe visualized plaque involving the proximal internal carotid artery and particularly the dist al left common carotid artery. Followup CT angiogram for further assessment is recommended. POS: [facility]
[2017-06-07] MEDS: Dextrose 5 % And 0.9 % NaCl 1,000 ML IV SCH (14:18)
[2017-06-07] MEDS: Insulin Regular 300 UNITS/3 ML VIAL SC PRN (14:21)
[2017-06-07] MEDS: Carvedilol 6.25 MG TAB PER TUBE SCH (16:53)
--- NOTE | 2017-06-07 20:13 | PDOC.PN ---
- Subjective Encounter Start Date: 06/07/17 Encounter Start Time: 11:00 Patient seen and examined. Intubated on Vent - on no sedatives. - Objective Resuscitation Status: Resuscitation Status DNR:Do Not Resuscitate MAR Reviewed: Yes Vital Signs & Weight: Vital Signs (12 hours) Temp Pulse Pulse Resp BP BP Pulse Ox 06/07/17 18:10 70 175/66 H 06/07/17 18:04 81 175/56 H 06/07/17 17:56 12 06/07/17 16:53 153/49 H 06/07/17 16:08 84 134/47 L 06/07/17 16:00 98.5 F 20 06/07/17 14:27 71 172/51 H 06/07/17 14:25 73 10 L 99 06/07/17 14:20 76 172/51 H 06/07/17 14:00 12 06/07/17 12:18 76 179/54 H 06/07/17 12:00 98.3 F 13 06/07/17 10:32 76 179/54 H 06/07/17 10:00 81 16 172/52 H Pulse Ox 06/07/17 18:10 06/07/17 18:04 06/07/17 17:56 06/07/17 16:53 06/07/17 16:08 100 06/07/17 16:00 06/07/17 14:27 06/07/17 14:25 06/07/17 14:20 06/07/17 14:00 06/07/17 12:18 06/07/17 12:00 06/07/17 10:32 06/07/17 10:00 Weight Admit Weight 108 lb 3.2 oz Weight 113 lb 8.609 oz Most Recent Monitor Data Heart Rate from ECG 83 NIBP 175/56 NIBP BP-Mean 68 Respiration from ECG 19 SpO2 100 I&O: 06/06/17 06/07/17 06/08/17 06:59 06:59 06:59 Intake Total 828 1770 1110 Output Total 312 915 582 Balance 511 855 528 Result Diagrams: 06/07/17 04:23 06/07/17 04:23 Additional Labs: Accuchecks 06/07/17 06/07/17 06/07/17 17:10 13:57 10:46 POC Glucose 169 H 161 H 147 H 06/07/17 06/07/17 06/06/17 04:36 00:44 20:33 POC Glucose 133 H 137 H 126 H EKG Reviewed by me: Yes (Tele SR) Phys Exam - Physical Examination Pt on Mech Vent Respiratory: no wheezing, no rhonchi Cardiovascular: RRR, no rub Gastrointestinal: soft, positive bowel sounds Musculoskeletal: no edema Neuro/Psych - Cannot assess due to sedation Dx/Plan - Plan DVT proph w/SCDs IMPRESSION: 1. 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 2. Acute hypoxic respiratory failure - on Mech Vent 3. Acute kidney injury on chronic kidney disease stage 5. 4. Metabolic acidosis, probably secondary to renal insufficiency. improved 5. Suspected seizure secondary to acute cerebrovascular accident. 6. Sepsis with acute organ dysfunction secondary to urinary tract infection/ Aspiration pneumonia - on Atbx 7. Diabetes mellitus type 2. on sliding scale 8. Hypertension. 9. Chronic anemia. 10. Glaucoma. 11. Dyslipidemia. PLAN: * Started on ASA * DC Bicarb drip * Resume home BP meds * Cont Clonidine patch to prevent clonidine rebound * Cont to monitor * Critical care following * Neuro input appreciated * DNR * Cont Zosyn/Vancomycin * Not on Heparin/Lovenox due to hemorrhagic conversion Review of Systems - Review of Systems Other: Cannot obtain due to sedatives - Medications/Allergies Allergies/Adverse Reactions: Allergies Allergy/AdvReac Type Severity Reaction Status Date / Time acetaminophen [From Vicodin] Allergy Verified 11/23/16 15:45 hydrocodone [From Vicodin] Allergy Verified 11/23/16 15:45 meperidine [From Demerol] Allergy Verified 11/23/16 15:45 morphine Allergy Verified 11/23/16 15:45 Medications: Current Medications Albuterol/Ipratropium (Duoneb) 3 ml NEB [id number] PRN PRN Reason: SOB &/or Wheezing Albuterol/Ipratropium (Duoneb) 3 ml NEB [id number] [facility] Last Admin: 06/07/17 18:10 Dose: 3 ml Amlodipine Besylate (Norvasc) 5 mg PER TUBE BID [facility] Aspirin (Aspirin) 325 mg PO DAILY [facility] Last Admin: 06/07/17 10:00 Dose: 325 mg Atorvastatin Calcium (Lipitor) 10 mg PER TUBE HS [facility] Last Admin: 06/06/17 20:20 Dose: 10 mg Bisacodyl (Dulcolax) 10 mg [place] DAILYPRN PRN PRN Reason: Constipation Carvedilol (Coreg) 6.25 mg PER TUBE BID-WM [facility] Last Admin: 06/07/17 16:53 Dose: 6.25 mg Clonidine (Bvwaofbz-Dvw-0 Patch) 0.1 mg TD Q7DAYS@1300 [facility] Last Admin: 06/06/17 13:13 Dose: 0.1 mg Dextrose/Water (Dextrose 50%) 25 gm SLOW IVP PRN PRN PRN Reason: Hypoglycemia Famotidine (Pepcid) 20 mg SLOW IVP Q24HR [facility] Last Admin: 06/07/17 10:01 Dose: 20 mg Glucagon (Glucagon) 1 mg IM PRN PRN PRN Reason: Hypoglycemia Hydralazine HCl (Apresoline) 10 mg SLOW IVP Q4H PRN PRN Reason: BP > 160 Last Admin: 06/07/17 12:18 Dose: 10 mg Dextrose/Water (D5w) 1,000 mls @ 0 mls/hr IV .Q0M PRN; As Directed PRN Reason: Hypoglycemia Levetiracetam 250 mg/ Sodium (Chloride) 102.5 mls @ 205 mls/hr IVPB 1000,2200 [facility] Last Admin: 06/07/17 10:32 Dose: 102.5 mls Piperacillin Sod/Tazobactam (Sod 2.25 gm/ Sodium Chloride) 100 mls @ 200 mls/ hr IVPB 0600,1800 [facility] Last Admin: 06/07/17 19:49 Dose: 100 mls Vancomycin HCl 1.25 gm/ Sodium (Chloride) 250 mls @ 166.667 mls/hr IVPB [facility] Vancomycin HCl 1 gm/ Device 200 mls @ 200 mls/hr IVPB [facility] Vancomycin HCl 750 mg/ Sodium (Chloride) 250 mls @ 250 mls/hr IVPB [facility] Vancomycin HCl 500 mg/ Sodium (Chloride) 100 mls @ 100 mls/hr [facility] Dextrose/Sodium Chloride (D5 0.9% Ns) 1,000 mls @ 50 mls/hr IV .Q20H [facility] Last Admin: 06/07/17 14:18 Dose: 1,000 mls Insulin Human Regular (Humulin R) 0 units SC .MILD SLIDING SCALE PRN PRN Reason: Mild Correctional Scale Last Admin: 06/07/17 14:21 Dose: 2 unit Labetalol HCl (Normodyne) 20 mg SLOW IVP Q1H PRN PRN Reason: BP > 160 Last Admin: 06/07/17 18:04 Dose: 20 mg Labetalol HCl (Normodyne) 10 mg SLOW IVP Q6H PRN PRN Reason: SBP GREATER THAN 160 Last Admin: 06/06/17 01:22 Dose: 10 mg Mineral Oil/White Petrolatum (Eucerin Cream) 0 gm TOP BIDPRN PRN PRN Reason: Dry Skin Miscellaneous Medication (Pharmacy To Dose) 1 each IVPB PRN PRN PRN Reason: Pharmacy to dose Miscellaneous Medication (Pharmacy To Dose) 1 each IVPB PRN PRN PRN Reason: Pharmacy to dose Hold Vancomycin For (Level >20) 0 each FS .AT DIALYSIS [facility] Ondansetron HCl (Zofran Odt) 4 mg PO Q6H PRN PRN Reason: Nausea/Vomiting Ondansetron HCl (Zofran) 4 mg IVP Q6H PRN PRN Reason: Nausea/Vomiting Sodium Bicarbonate (Bicarbonate, Sodium) 325 mg PER TUBE BID [facility] Sodium Chloride (Flush - Normal Saline) 10 ml IVF Q12HR [facility] Last Admin: 06/07/17 10:01 Dose: 10 ml Sodium Chloride (Flush - Normal Saline) 10 ml IVF PRN PRN PRN Reason: Saline Flush
[2017-06-07] MEDS ORDERED: Carvedilol 6.25 MG TAB PER TUBE SCH (21:00)
[2017-06-07] MEDS: Atorvastatin Calcium 10 MG TAB PER TUBE SCH (21:39)
[2017-06-07] MEDS: Sodium Bicarbonate Tab 325 MG TAB PER TUBE SCH (21:39)
[2017-06-07] MEDS: Amlodipine 10 MG TAB PER TUBE SCH (21:39)
[2017-06-08 04:51] LABS: Hematocrit 30.8 % (36.0-47.0); Mean Platelet Volume 7.7 fL (7.4-10.4); Red Blood Cell (RBC) Count 3.01 mill/uL (4.20-5.40); White Blood Cell (WBC) Count 12.8 thou/uL (4.8-10.8)
[2017-06-08 05:00] LABS: Band 2 % (5-11); Neutrophil 95 % (42-75)
[2017-06-08 05:10] LABS: ALT (SGPT) 9 U/L (8-55); AST (SGOT) 16 U/L (5-34); Alkaline Phosphatase 89 U/L (40-150); Anion Gap 14 mmol/L (10-20); BUN (Urea Nitrogen) 81 mg/dL (9.8-20.1); Bilirubin, Total 0.4 mg/dL (0.2-1.2); Calc. Creatinine Clearance 5 mL/min (70-130); Calcium 6.8 mg/dL (7.8-10.44); Carbon Dioxide 29 mmol/L (23-31); Chloride 103 mmol/L (98-107); Estimated GFR-MDRD 5; Protein, Total 5.5 g/dL (6.0-8.3)
[2017-06-08] MEDS: Piperacillin/Tazobactam 2.25 GM in Sodium Chloride 0.9% 100 ML IVPB SCH ×2 (06:09→18:34)
[2017-06-08] MEDS: Sodium Bicarbonate Tab 325 MG TAB PER TUBE SCH ×3 (09:02→21:34)
[2017-06-08] MEDS: Aspirin 325 MG TAB PO SCH (09:02)
[2017-06-08] MEDS: Amlodipine 10 MG TAB PER TUBE SCH (09:02)
[2017-06-08] MEDS: Carvedilol 6.25 MG TAB PER TUBE SCH (09:02)
--- NOTE | 2017-06-08 09:12 | PRG ---
DATE OF SERVICE: 06/08/2017 SUBJECTIVE: Ms. Ellsworth remains unresponsive and is on ventilator support. The plan is to extubate he r. The family is still undecided regarding hospice care. They agreed to have the tube removed and i f she has no spontaneous respiration, they will accept the fate of this patient. However, if she con tinues to have spontaneous respiration and vital signs stable, the nephew would like to bring the pat ient on home. OBJECTIVE: VITAL SIGNS: Blood pressure is 160/52, heart rate 90, respiratory rate 19, O2 sat 100%. GENERAL: The patient is unresponsive, intubated and on ventilator support. SKIN: Adequate turgor. HEENT: She has pinkish conjunctivae, anicteric sclerae. NECK: No neck mass, no carotid bruits, no JVD. CHEST: No deformities. LUNGS: Decreased breath sounds. HEART: Normal sinus rhythm. No murmur, no gallops, no rubs. ABDOMEN: Globular, soft, nontender. EXTREMITIES: No edema. MEDICATIONS: Of 06/08/2017 reviewed. LABORATORY DATA: Of 06/08/2017, white count 12.8, hemoglobin 9.8, hematocrit 30.8, platelet count is 207,000. ASSESSMENT AND PLAN: Acute kidney injury/chronic renal failure with creatinine noted at 7.28. No in dication for any dialytic intervention. I do not think this patient at the present time is not a can didate for any dialytic intervention. Continue supportive care. I agree with current management. C onsider hospice.
[2017-06-08] MEDS: Famotidine/PF 20 mg/2ml Vial SLOW IVP SCH (09:21)
--- NOTE | 2017-06-08 09:52 | PRG ---
DATE OF SERVICE: 06/08/2017 Thirty-five minutes critical care time. The patient remains intubated on mechanical ventilation. She is able to look around. She is not steve y communicative. PHYSICAL EXAMINATION: VITAL SIGNS: Temperature is 98.5, pulse 83, blood pressure 117/62. 24 hour intake 2269, output 92. HEENT: Pupils react. Sclerae are anicteric. Oropharynx clear. NECK: No JVD. LUNGS: Clear to auscultation anteriorly. CARDIOVASCULAR: S1, S2 regular, without murmur. ABDOMEN: Soft, nontender. EXTREMITIES: No clubbing, cyanosis, or edema. LABORATORY DATA: White blood cell count 12.8, hemoglobin 9.8, hematocrit 30.8, platelet count 207. Sodium 143, potassium 2.9, chloride 103, CO2 29, BUN 81, creatinine 7.2, glucose 151. Chest x-ray sh ows no change. ASSESSMENT: 1. Acute respiratory failure requiring mechanical ventilation. 2. Cerebrovascular accident. 3. Chronic renal failure. 4. Hypokalemia. 5. Aspiration pneumonitis. PLAN: The family has tentatively decided to extubate the patient later this morning. Palliative Car e is meeting with the family at that time. We are continuing all other medical interventions aside f rom mechanical ventilation. She has a DNR order.
--- NOTE | 2017-06-08 10:03 | RAD ---
FRONTAL RADIOGRPAH CHEST: DATE: 06/08/17. COMPARISON: 06/07/17. HISTORY: Ventilated CCU patient. FINDINGS: Endotracheal tube, nasogastric tube, and left-sided vascular catheter in stable position. No pneumot horax is seen. Bilateral pleural effusions are noted, left greater than right. There is diffuse interstitial opacit y within the left lung with bibasilar airspace disease, left greater than right. There has been no s ignificant interval change. IMPRESSION: Grossly unchanged chest radiograph as above. POS: [facility]
[2017-06-08] MEDS ORDERED: Lorazepam 2 MG/ML VIAL ONE (11:18)
[2017-06-08] MEDS ORDERED: Lorazepam 2 MG/ML VIAL SLOW IVP PRN (11:32)
[2017-06-08] MEDS: Dextrose 5 % And 0.9 % NaCl 1,000 ML IV SCH (11:39)
--- NOTE | 2017-06-08 18:23 | PDOC.PN ---
- Subjective Encounter Start Date: 06/08/17 Encounter Start Time: 09:00 Patient seen and examined. on Vent. No overnight events - Objective Resuscitation Status: Resuscitation Status DNR:Do Not Resuscitate MAR Reviewed: Yes Vital Signs & Weight: Vital Signs (12 hours) Temp Pulse Resp BP BP Pulse Ox 06/08/17 17:10 96.7 F L 85 22 H 152/67 H 92 L 06/08/17 16:00 97.9 F 06/08/17 12:00 97.8 F 100 06/08/17 11:01 82 24 H 98 06/08/17 10:00 20 06/08/17 09:02 71 165/54 H 06/08/17 08:00 98.5 F 71 15 100 06/08/17 07:33 71 165/54 H Weight Admit Weight 108 lb 3.2 oz Weight 112 lb 6.972 oz Most Recent Monitor Data Heart Rate from ECG 75 NIBP 134/51 NIBP BP-Mean 68 Respiration from ECG 23 SpO2 100 I&O: 06/07/17 06/08/17 06/09/17 06:59 06:59 06:59 Intake Total 1770 2269 836 Output Total 915 982 490 Balance 855 1287 346 Result Diagrams: 06/08/17 04:05 06/08/17 04:05 Additional Labs: Accuchecks 06/08/17 06/08/17 06/08/17 16:24 12:18 09:29 POC Glucose 108 131 H 152 H 06/07/17 21:48 POC Glucose 129 H EKG Reviewed by me: Yes (Tele SR) Phys Exam - Physical Examination Intubated on Vent Respiratory: no wheezing, no rhonchi Coarse BS B/L Cardiovascular: RRR, no rub Gastrointestinal: soft, positive bowel sounds Musculoskeletal: no edema Dx/Plan - Plan DVT proph w/SCDs IMPRESSION: 1. 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 on ASA 2. Acute hypoxic respiratory failure [facility] 3. Acute kidney injury on chronic kidney disease stage 5. Nephrology following 4. Metabolic acidosis, probably secondary to renal insufficiency. improved 5. Suspected seizure secondary to acute cerebrovascular accident. 6. Sepsis with acute organ dysfunction secondary to urinary tract infection/ Aspiration pneumonia - on Atbx 7. Diabetes mellitus type 2. on sliding scale 8. Hypertension. 9. Chronic anemia. 10. Glaucoma. 11. Dyslipidemia. PLAN: * Extubation today. Family at bedside * Critical care following * DNR * Cont Zosyn/Vancomycin * Not on Heparin/Lovenox due to hemorrhagic conversion * Cont current meds as below Review of Systems - Review of Systems Other: Cannot obtain due to current mentation. - Medications/Allergies Allergies/Adverse Reactions: Allergies Allergy/AdvReac Type Severity Reaction Status Date / Time acetaminophen [From Vicodin] Allergy Verified 11/23/16 15:45 hydrocodone [From Vicodin] Allergy Verified 11/23/16 15:45 meperidine [From Demerol] Allergy Verified 11/23/16 15:45 morphine Allergy Verified 11/23/16 15:45 Medications: Current Medications Albuterol/Ipratropium (Duoneb) 3 ml NEB [id number] PRN PRN Reason: SOB &/or Wheezing Aspirin (Aspirin) 300 mg NE DAILY [facility] Bisacodyl (Dulcolax) 10 mg NE DAILYPRN PRN PRN Reason: Constipation Clonidine (Rcmipior-Zmi-7 Patch) 0.1 mg TD Q7DAYS@1300 [facility] Last Admin: 06/06/17 13:13 Dose: 0.1 mg Dextrose/Water (Dextrose 50%) 25 gm SLOW IVP PRN PRN PRN Reason: Hypoglycemia Famotidine (Pepcid) 20 mg SLOW IVP Q24HR [facility] Last Admin: 06/08/17 09:21 Dose: 20 mg Glucagon (Glucagon) 1 mg IM PRN PRN PRN Reason: Hypoglycemia Hydralazine HCl (Apresoline) 10 mg SLOW IVP Q4H PRN PRN Reason: BP > 160 Last Admin: 06/07/17 12:18 Dose: 10 mg Dextrose/Water (D5w) 1,000 mls @ 0 mls/hr IV .Q0M PRN; As Directed PRN Reason: Hypoglycemia Levetiracetam 250 mg/ Sodium (Chloride) 102.5 mls @ 205 mls/hr IVPB 1000,2200 [facility] Last Admin: 06/08/17 11:38 Dose: 102.5 mls Piperacillin Sod/Tazobactam (Sod 2.25 gm/ Sodium Chloride) 100 mls @ 200 mls/ hr IVPB 0600,1800 [facility] Last Admin: 06/08/17 06:09 Dose: 100 mls Vancomycin HCl 1.25 gm/ Sodium (Chloride) 250 mls @ 166.667 mls/hr IVPB WILLCALL [facility] Vancomycin HCl 1 gm/ Device 200 mls @ 200 mls/hr IVPB WILLCALL [facility] Vancomycin HCl 750 mg/ Sodium (Chloride) 250 mls @ 250 mls/hr IVPB WILLCALL [facility] Vancomycin HCl 500 mg/ Sodium (Chloride) 100 mls @ 100 mls/hr IVPB WILLCALL [facility] Dextrose/Sodium Chloride (D5 0.9% Ns) 1,000 mls @ 50 mls/hr IV .Q20H [facility] Last Admin: 06/08/17 11:39 Dose: 1,000 mls Insulin Human Regular (Humulin R) 0 units SC .MILD SLIDING SCALE PRN PRN Reason: Mild Correctional Scale Last Admin: 06/07/17 14:21 Dose: 2 unit Labetalol HCl (Normodyne) 10 mg SLOW IVP Q6H PRN PRN Reason: SBP GREATER THAN 160 Last Admin: 06/06/17 01:22 Dose: 10 mg Lorazepam (Ativan) 1 mg SLOW IVP Q1H PRN PRN Reason: Anxiety/Agitation Mineral Oil/White Petrolatum (Eucerin Cream) 0 gm TOP BIDPRN PRN PRN Reason: Dry Skin Miscellaneous Medication (Pharmacy To Dose) 1 each IVPB PRN PRN PRN Reason: Pharmacy to dose Miscellaneous Medication (Pharmacy To Dose) 1 each IVPB PRN PRN PRN Reason: Pharmacy to dose Nitroglycerin (Nitro-Bid 2% Ointment) 1 inch TOP BID [facility] Hold Vancomycin For (Level >20) 0 each FS .AT DIALYSIS [facility] Ondansetron HCl (Zofran Odt) 4 mg PO Q6H PRN PRN Reason: Nausea/Vomiting Ondansetron HCl (Zofran) 4 mg IVP Q6H PRN PRN Reason: Nausea/Vomiting Sodium Bicarbonate (Bicarbonate, Sodium) 325 mg PER TUBE BID [facility] Last Admin: 06/08/17 09:02 Dose: 325 mg Sodium Chloride (Flush - Normal Saline) 10 ml IVF Q12HR [facility] Last Admin: 06/08/17 09:03 Dose: 10 ml Sodium Chloride (Flush - Normal Saline) 10 ml IVF PRN PRN PRN Reason: Saline Flush
[2017-06-08 20:19] VITALS: TEMP 97.4
[2017-06-08] MEDS: hydrALAZINE 20 MG/ML VIAL SLOW IVP PRN (21:21)
[2017-06-08] MEDS: Nitroglycerin 2% Ointment 1 INCH/1 GM Packet TOP SCH (21:24)
[2017-06-09 04:07] VITALS: BMI 26.6
[2017-06-09] MEDS: Dextrose 5 % And 0.9 % NaCl 1,000 ML IV SCH (06:30)
[2017-06-09] MEDS: Piperacillin/Tazobactam 2.25 GM in Sodium Chloride 0.9% 100 ML IVPB SCH (06:31)
[2017-06-09 07:39] VITALS: BP 179/72
[2017-06-09] MEDS: Sodium Bicarbonate Tab 325 MG TAB PER TUBE SCH (08:32)
[2017-06-09] MEDS ORDERED: Aspirin 300 MG Suppository PR SCH (09:00)
--- NOTE | 2017-06-09 09:42 | PRG ---
DATE OF SERVICE: 06/09/2017 SUBJECTIVE: Ms. Ellsworth has been moved to the Oncology floor. She is lying on her side in bed. She i s very poorly responsive to external stimuli. PHYSICAL EXAMINATION: VITAL SIGNS: Temperature 97.4, pulse 91, respiratory rate 32, O2 sat 99%, blood pressure 179/72. HEENT: Unremarkable. NECK: No JVD. LUNGS: Coarse rhonchi. CARDIAC: S1 and S2 regular. ABDOMEN: Soft. EXTREMITIES: No edema. ASSESSMENT: 1. Status post cerebrovascular accident. 2. Status post respiratory failure. PLAN: We are focusing on palliative care measures at this time. I think that she will fairly quickly. I will sign off the case. Please recall if further input needed.
[2017-06-09] MEDS: Nitroglycerin 2% Ointment 1 INCH/1 GM Packet TOP SCH (09:50)
[2017-06-09] MEDS: Famotidine/PF 20 mg/2ml Vial SLOW IVP SCH (09:57)
[2017-06-09] MEDS ORDERED: Scopolamine 1.5 mg/72 hour Patch TD SCH (12:15)
--- NOTE | 2017-06-09 13:34 | DIS ---
DATE OF ADMISSION: 06/05/2017 DATE OF DISCHARGE: 06/09/2017 DISCHARGE DISPOSITION: Inpatient hospice. PRIMARY CARE PHYSICIAN: Lu Thomas M.D. CODE STATUS: DO NOT RESUSCITATE. DISCHARGE MEDICATIONS: Per hospice. Patient was seen and examined on the day of discharge. BRIEF HOSPITAL COURSE: The patient is an 81-year-old female with hypertension, diabetes mellitus typ e 2, and CKD stage 5, presented to the hospital with unresponsiveness. Please refer to the history a nd physical dated 06/05/2017 for further details. The patient was admitted to the hospital with the diagnosis of extensive left MCA distribution CVA wi th small hemorrhage and left to right subfalcine herniation with mass effect to the mass effect of th e left ventricular system. She was monitored in the Intensive Care Unit. The patient was seen by the [facility] consultants including Neurosurgery, Neurology, Critical Care, and Nephrology. She received ma nnitol due to significant edema. Echocardiogram showed ejection fraction 60%-65%. Carotid Doppler s howed severe stenosis of the right ICA as well as left common carotid artery. She was placed on [facility] anical ventilation on admission. She was terminally extubated yesterday. She will be discharged to inpatient hospice once accepted. Patient also had significant leukocytosis with WBC 21,000 with 16% bandemia. Her blood culture 1 of 2 showed coagulase negative staph. Urine culture showed E. coli and Citrobacter. She was placed on broad spectrum antibiotics during this hospital stay. FINAL DIAGNOSES: 1. 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 2. Acute hypoxic respiratory failure. 3. Acute kidney injury on chronic kidney disease stage 5. 4. Metabolic acidosis. 5. Suspected seizures secondary to cerebrovascular accident. 6. Sepsis with acute organ dysfunction secondary to urinary tract infection. 7. Diabetes mellitus type 2. 8. Hypertension. 9. Chronic anemia. 10. Glaucoma. 11. Dyslipidemia. Plan of care was discussed with the family. They stated understanding. Palliative care team was als o following during this hospital stay.
== END 2017-06-09 17:18 | disposition hospice, inpatient (51) | DRG 871 ==
LOC: ERS 15:01 → CCU 19:00 → ONC 06-08 17:37
PROVIDERS: ADMIT Internal Medicine; ATTEND Internal Medicine
PROC: 02HV33Z Insertion of Infusion Device into Superior Vena Cava, Percutaneous Approach (ICD-10-PCS; principal; 2017-06-05)
PROC: 5A1945Z Respiratory Ventilation, 24-96 Consecutive Hours (ICD-10-PCS; 2017-06-05)
PROC: 0BH17EZ Insertion of Endotracheal Airway into Trachea, Via Natural or Artificial Opening (ICD-10-PCS; 2017-06-05)
DX: A41.9 Sepsis, unspecified organism (principal); I63.9 Cerebral infarction, unspecified; G93.6 Cerebral edema; J96.01 Acute respiratory failure with hypoxia; J69.0 Pneumonitis due to inhalation of food and vomit; N25.81 Secondary hyperparathyroidism of renal origin; G81.01 Flaccid hemiplegia affecting right dominant side; N17.9 Acute kidney failure, unspecified; E87.2 Acidosis; I12.0 Hypertensive chronic kidney disease with stage 5 chronic kidney disease or end stage renal disease; N18.5 Chronic kidney disease, stage 5; N39.0 Urinary tract infection, site not specified; R47.01 Aphasia; R65.20 Severe sepsis without septic shock; E11.22 Type 2 diabetes mellitus with diabetic chronic kidney disease; E78.5 Hyperlipidemia, unspecified; D64.9 Anemia, unspecified; H40.9 Unspecified glaucoma; Z88.5 Allergy status to narcotic agent; Z87.891 Personal history of nicotine dependence; R56.9 Unspecified convulsions; Z51.5 Encounter for palliative care; E87.6 Hypokalemia; Z66 Do not resuscitate; B96.20 Unspecified Escherichia coli [E. coli] as the cause of diseases classified elsewhere; B96.89 Other specified bacterial agents as the cause of diseases classified elsewhere; E11.21 Type 2 diabetes mellitus with diabetic nephropathy; E11.51 Type 2 diabetes mellitus with diabetic peripheral angiopathy without gangrene; M10.9 Gout, unspecified; I65.23 Occlusion and stenosis of bilateral carotid arteries; R40.2432 Glasgow coma scale score 3-8, at arrival to emergency department
CPT/HCPCS: 31500; 36415; 36416; 36556; 51702; 70450; 71010; 80053; 80061; 80202; 80306; 80307; 81003; 81015; 82140; 82553; 82805; 83605; 83690; 83880; 84146; 84443; 84484; 85007; 85025; 85027; 85379; 85610; 85730; 86704; 86706; 86803; 87040; 87077; 87086; 87149; 87186; 87340; 93005; 93306; 93880; 94002; 94003; 94640; 94644; 94660; 96365; 96367; 96368; 96375; 99292; A4216; C1752; G8981-GP-CN; G8982-GP-CK; G8987-GO-CN; G8988-GO-CL; J0360; J1815; J1940; J1953; J1956; J2060; J2543; J3370; J7050; J7070; J7620; S0028